=== PATIENT | male | born 1985 | race African-American/Black ===

== ENCOUNTER 2016-08-12 01:41 | Emergency (ER) | payer SELFPAY ==
[2016-08-12] MEDS ORDERED: AMOXICILLIN TR/POT CLAVULANATE 500-125 MG TAB PO ONE (02:19)
[2016-08-12] MEDS ORDERED: HYDROCODONE/ACETAMINOPHEN 5-325 MG 6 TAB/DSPK PO PRN (02:19)
--- NOTE | 2016-08-12 02:22 | ER Document Report ---
ED General - General Chief Complaint: Toothache Stated Complaint: POSSIBLE ABSCESS Notes: Patient is a 30-year-old male without past mental history who presents with 3 days of progressively worsening left facial pain and left lower molar pain. Describes it as a constant, dull, aching pain. It is worsened by eating or drinking. He has tried ibuprofen with minimal improvement of the pain. Denies a history of similar symptoms in the past. He has not seen his primary care physician or dentist regarding today's complaints. He denies any associated difficulty swallowing, breathing, or fever. TRAVEL OUTSIDE OF THE [place] IN LAST 30 DAYS: No - Related Data Allergies/Adverse Reactions: No Known Allergies Allergy (Verified 08/12/16 01:45) Past Medical History - General Information source: Patient - Social History Smoking Status: Never Smoker Frequency of alcohol use: Occasional Drug Abuse: None Lives with: Spouse/Significant other Family History: CAD Musculoskeltal Medical History: Reports Hx Musculoskeletal Trauma Skin Medical History: Reports Hx Cellulitis Past Surgical History: Reports: Hx Testicular Surgery - testicular abscess - Immunizations Immunizations up to date: Yes Hx Diphtheria, Pertussis, Tetanus Vaccination: Yes Review of Systems - Review of Systems Notes: Constitutional: Negative for fever. HENT: Negative for sore throat. Positive for dental pain and facial swelling Eyes: Negative for visual changes. Cardiovascular: Negative for chest pain. Respiratory: Negative for shortness of breath. Gastrointestinal: Negative for abdominal pain, vomiting or diarrhea. Genitourinary: Negative for dysuria. Musculoskeletal: Negative for back pain. Skin: Negative for rash. Neurological: Negative for headaches, weakness or numbness. 10 point ROS negative except as marked above and in HPI. Physical Exam - Vital signs Vitals: Temp Pulse Resp BP Pulse Ox 98.3 F 86 18 122/83 100 08/12/16 01:45 08/12/16 01:45 08/12/16 01:45 08/12/16 01:45 08/12/16 01:45 Interpretation: Normal Notes: PHYSICAL EXAMINATION: GENERAL: Well-appearing, well-nourished and in no acute distress. HEAD: Atraumatic, normocephalic. EYES: sclera anicteric, conjunctiva are normal. ENT: Moist mucous membranes. There is an apparent dental caries of tooth #19 with mild associated buccal mucosal swelling NECK: Normal range of motion LUNGS: Normal work of breathing HEART: 2+ radial pulses bilaterally EXTREMITIES: no pitting or edema. No cyanosis. NEUROLOGICAL: No focal neurological deficits. Moves all extremities spontaneously and on command. PSYCH: Normal mood, normal affect. SKIN: Warm, Dry, normal turgor, no rashes or lesions noted. Course - Re-evaluation Re-evalutation: 08/12/16 02:20 Presentation is most consistent with likely an infected tooth. Airway is patent. Vitals within normal limits. Patient is able swallow without any difficulty. There is no significant facial swelling. Patient will be started on antibiotics and a limited number of pain medications. I've instructed to follow-up with dentistry as earliest ability for definitive management. Return precautions and follow-up recommendations have been discussed at length. - Vital Signs Vital signs: Temp Pulse Resp BP Pulse Ox 98.3 F 86 18 122/83 100 08/12/16 01:45 08/12/16 01:45 08/12/16 01:45 08/12/16 01:45 08/12/16 01:45 Discharge - Discharge Clinical Impression: Dental caries Condition: Good Disposition: HOME, SELF-CARE Additional Instructions: You have been seen for dental pain. It is very important that you follow-up with a dentist for definitive care. Please return if you develop fever greater than 101, swelling in your face, vomiting, difficulty breathing or swallowing, or any other symptoms that are concerning to you. For pain you should take ibuprofen 600 mg every 6 hours as needed. Prescriptions: Amox Tr/Potassium Clavulanate [Augmentin 875-125 Tablet] 1 tab PO BID 10 Days
[2016-08-12 02:32] VITALS: BP 127/85
== END 2016-08-12 02:33 | disposition home or self-care (01) ==
LOC: ER 01:41
DX: K02.9 Dental caries, unspecified (principal); K08.9 Disorder of teeth and supporting structures, unspecified; R51 Headache
CPT/HCPCS: 99282

== ENCOUNTER 2016-08-17 09:05 | Emergency (ER) | payer SELFPAY ==
[2016-08-17 09:13] VITALS: BP 114/70
--- NOTE | 2016-08-17 09:30 | ER Document Report ---
ED Oral Problem - General Mode of Arrival: Ambulatory Information source: Patient TRAVEL OUTSIDE OF THE [place] IN LAST 30 DAYS: No - HPI Patient complains to provider of: Toothache Onset: Last week Quality of pain: Sharp, Throbbing Context: Fractured tooth Associated symptoms: Dental decay, Jaw pain, Toothache Recently seen / treated by doctor/dentist: Yes - [facility] ED 08/12/2016 - General Chief Complaint: Toothache Stated Complaint: TOOTH PAIN Notes: Patient is a 30-year-old male presenting to the emergency room concerned of left lower tooth pain for the past 7 days. Patient was seen here 4 days ago and given Augmentin and [place] and told to make an appointment to follow-up with the dentist. Patient states that the pain has persisted despite taking his medication. Patient states that he has not been eating as much, and he has a dentist appointment scheduled for . Patient states this is the soonest they can get him in. (KRIS GONZALEZ) - Related Data Allergies/Adverse Reactions: No Known Allergies Allergy (Verified 08/17/16 09:12) Past Medical History - General Information source: Patient - Social History Smoking Status: Current Every Day Smoker Chew tobacco use (# tins/day): No Frequency of alcohol use: Occasional Drug Abuse: None Family History: Reviewed & Not Pertinent, CAD Patient has suicidal ideation: No Patient has homicidal ideation: No Musculoskeltal Medical History: Reports Hx Musculoskeletal Trauma Skin Medical History: Reports Hx Cellulitis Past Surgical History: Reports: Hx Testicular Surgery - testicular abscess - Immunizations Immunizations up to date: Yes Hx Diphtheria, Pertussis, Tetanus Vaccination: Yes Review of Systems - Review of Systems Constitutional: No symptoms reported EENT: No symptoms reported, Mouth pain, Dental problem - Left lower tooth pain Cardiovascular: No symptoms reported Respiratory: No symptoms reported Gastrointestinal: No symptoms reported Genitourinary: No symptoms reported Male Genitourinary: No symptoms reported Musculoskeletal: No symptoms reported Skin: No symptoms reported Hematologic/Lymphatic: No symptoms reported Neurological/Psychological: No symptoms reported -: Yes All other systems reviewed and negative Physical Exam - Vital signs Interpretation: Normal - General General appearance: Alert - HEENT Head: Normocephalic, Atraumatic Eyes: Normal Pupils: PERRL Mouth/Lips: Dental fracture - Left 3rd lower anterior portion of molar chipped and decayed with some swelling of surrounding gums. No obvious abscess. Left Jaw is tender. Significant alcohol odor on breath. - Respiratory Respiratory status: No respiratory distress Chest status: Nontender - Cardiovascular Rhythm: Regular - Abdominal Inspection: Normal - Back Back: Normal - Extremities General upper extremity: Normal inspection General lower extremity: Normal inspection - Neurological Neuro grossly intact: Yes Cognition: Normal [place] Coma Scale Eye Opening: Spontaneous [place] Coma Scale Verbal: Oriented [place] Coma Scale Motor: Obeys Commands Peggy Coma Scale Total: 15 Speech: Normal - Psychological Associated symptoms: Normal affect, Normal mood - Skin Skin Temperature: Warm Skin Moisture: Dry Skin Color: Normal - Vital signs Vitals: Temp Pulse Resp BP Pulse Ox 98.0 F 87 16 114/70 96 08/17/16 09:10 08/17/16 09:10 08/17/16 09:10 08/17/16 09:10 08/17/16 09:10 (ROSANA WARD) (KRIS GONZALEZ) Discharge - Discharge Clinical Impression: Dental caries, Toothache Additional Instructions: Take ibuprofen or Aleve every day for the anti-inflammatory benefit. Be sure to follow with your dentist as scheduled this week. Prescriptions: Hydrocodone/Acetaminophen [Hydrocodon-Acetaminophen 5-325] 1 each PO Q4 PRN #15 tablet PRN Reason: Scribe Attestation: 08/17/16 09:40 I personally performed the services described in the documentation, reviewed and edited the documentation which was dictated to the scribe in my presence, and it accurately records my words and actions. (ROSANA WARD) Scribe Documentation - Scribe Written by Oanh:: OANH CARPENTER 08/17/16922 Acting as scribe for: (ROSANA WARD) Dr. Ward (KRIS GONZALEZ)
== END 2016-08-17 09:57 | disposition home or self-care (01) ==
LOC: ER 09:05
DX: K02.9 Dental caries, unspecified (principal); K03.89 Other specified diseases of hard tissues of teeth; F17.210 Nicotine dependence, cigarettes, uncomplicated
CPT/HCPCS: 99282

== ENCOUNTER 2017-01-20 03:09 | Emergency (ER) | payer SELFPAY ==
[2017-01-20 03:23] VITALS: BP 114/87
[2017-01-20] MEDS ORDERED: DIPH/PERTUSS(ACELL)/TETANUS VAC/PF 0.5 ML SYR (>=10YO) IM ONE (07:24)
[2017-01-20] MEDS ORDERED: LIDOCAINE 4%/TETRACAINE 0.5%/EPI 0.18% 5 ML TOPICAL SOLN TOP ONE (07:38)
--- NOTE | 2017-01-20 07:38 | ER Document Report ---
HPI - HPI Patient complains to provider of: right elbow pain Onset: Other Onset/Duration: Constant Pain Level: 5 Context: 31-year-old male fell onto his right elbow 2 days ago. He put a bandage on it and the gauze is stuck to the wound. He states it hurts too much to straighten his elbow. Tetanus not current Associated Symptoms: None Exacerbated by: Movement Relieved by: Denies Similar symptoms previously: No Recently seen / treated by doctor: No - ROS ROS below otherwise negative: Yes Systems Reviewed and Negative: Yes All other systems reviewed and negative - REPRODUCTIVE Reproductive: DENIES: : Past Medical History - General Information source: Patient - Social History Smoking Status: Unknown if Ever Smoked Frequency of alcohol use: None Drug Abuse: None Lives with: Family Family History: CAD Renal/ Medical History: Denies: Hx Peritoneal Dialysis Musculoskeltal Medical History: Reports Hx Musculoskeletal Trauma Skin Medical History: Reports Hx Cellulitis Past Surgical History: Reports: Hx Testicular Surgery - testicular abscess - Immunizations Immunizations up to date: Yes Hx Diphtheria, Pertussis, Tetanus Vaccination: Yes Vertical Provider Document - CONSTITUTIONAL Agree With Documented VS: Yes Exam Limitations: No Limitations - INFECTION CONTROL TRAVEL OUTSIDE OF THE [place] IN LAST 30 DAYS: No - HEENT HEENT: Normocephalic - NECK Neck: Supple - RESPIRATORY O2 Sat by Pulse Oximetry: 99 - MUSCULOSKELETAL/EXTREMETIES Musculoskeletal/Extremeties: Tender, Edema - abrasion right olecranon with gauze stuck to wound - NEURO Motor/Sensory: No Motor Deficit, No Sensory Deficit - DERM Integumentary: Warm, Dry Course - Re-evaluation Re-evalutation: 01/20/17 08:56 X-ray is negative and patient does not want the stuck gauze taken off even with left that had been applied. I cut the edges off, Vaseline, gauze, Coban and encouraged him to do range of motion. He has a hypersensitivity to touching the area. - Vital Signs Vital signs: Temp Pulse Resp BP Pulse Ox 98.3 F 96 18 114/87 H 99 01/20/17 03:18 01/20/17 03:18 01/20/17 03:18 01/20/17 03:18 01/20/17 03:18 Discharge - Discharge Clinical Impression: Right olecranon contusion and abrasion Condition: Good Disposition: HOME, SELF-CARE Instructions: Tetanus Immunization Given ([facility]), Soap Cleansing ([facility]), Antibiotic Ointment Protection ([facility]) Additional Instructions: Shower after removal of the bandage daily with replacement of Vaseline and nonstick dressing Return to the emergency room any signs of infection Please complete the patient satisfaction survey if you get one, and return it.. If you do not receive a survey, then you can go to the [facility] website, [email or web address] and place your comments about your very good care. Thank you very much. It was a pleasure being your medical provider today.
[2017-01-20] MEDS ORDERED: IBUPROFEN 800 MG TABLET PO ONE (07:46)
--- NOTE | 2017-01-20 08:27 | RADIOLOGY REPORT (SQ) ---
EXAM DESCRIPTION: ELBOW RIGHT OVER 2 VIEWS COMPLETED DATE/TIME: 01/20/2017 8:07 am REASON FOR STUDY: contusion COMPARISON: None. NUMBER OF VIEWS: Four views. TECHNIQUE: AP, lateral, and both oblique radiographic images acquired of the right elbow. LIMITATIONS: None. FINDINGS: MINERALIZATION: Normal. BONES: No acute fracture or dislocation. No worrisome bone lesions. JOINT: No effusion. SOFT TISSUES: No soft tissue swelling. No foreign body. OTHER: No other significant finding. IMPRESSION: NEGATIVE STUDY OF THE RIGHT ELBOW. NO RADIOGRAPHIC EVIDENCE OF ACUTE INJURY. TECHNICAL DOCUMENTATION: JOB ID: [id number] [employer]- All Rights Reserved
== END 2017-01-20 09:00 | disposition home or self-care (01) ==
LOC: ER 03:09
DX: S50.01XA Contusion of right elbow, initial encounter (principal); S50.311A Abrasion of right elbow, initial encounter; M25.521 Pain in right elbow; X58.XXXA Exposure to other specified factors, initial encounter
CPT/HCPCS: 99283; 90471; 73080; 90715; J3490

== ENCOUNTER 2017-02-10 03:58 | Emergency (ER) | payer SELFPAY ==
[2017-02-10] MEDS ORDERED: HYDROMORPHONE HCL INJ/PF 2 MG/ML AMPULE IV ONE ×2 (04:43→06:21)
[2017-02-10] MEDS ORDERED: LORAZEPAM INJ 2 MG/1 ML VIAL IV ONE (04:43)
[2017-02-10] MEDS ORDERED: AMPICILLIN SOD/SULBACTAM 3 GM VIAL IV ONE (04:44)
[2017-02-10] MEDS ORDERED: VANCOMYCIN HCL INJ 1000 MG VIAL IV ONE (04:44)
[2017-02-10] MEDS ORDERED: LIDOCAINE 1% INJ-PF (10 MG/ML) 30 ML SDV INJ ONE (04:46)
--- NOTE | 2017-02-10 04:47 | ER Document Report ---
ED General - General TRAVEL OUTSIDE OF THE [place] IN LAST 30 DAYS: No - General Chief Complaint: Abscess Stated Complaint: ABSCESS Time Seen by Provider: 02/10/17 04:31 Notes: Patient is a 31-year-old male presents with complaint of a abscess at the junction of his left medial thigh and scrotal sac. He never had one in this location before. He has some drainage in the area earlier today. No fevers. No vomiting. No diarrhea. Patient has no other complaints at this time. No abdominal pain. No pain into the genitalia itself. Is not diabetic. (MARCIAL WILCOX) - Related Data Allergies/Adverse Reactions: No Known Allergies Allergy (Verified 08/17/16 09:12) Past Medical History - Social History Smoking Status: Current Every Day Smoker Frequency of alcohol use: Heavy Drug Abuse: None Family History: CAD Patient has suicidal ideation: No Patient has homicidal ideation: No Renal/ Medical History: Denies: Hx Peritoneal Dialysis Musculoskeltal Medical History: Reports Hx Musculoskeletal Trauma Skin Medical History: Reports Hx Cellulitis Past Surgical History: Reports: Hx Testicular Surgery - testicular abscess x 2 - Immunizations Immunizations up to date: Yes Hx Diphtheria, Pertussis, Tetanus Vaccination: Yes Review of Systems - Review of Systems Notes: My Normal Review Basic REVIEW OF SYSTEMS: CONSTITUTIONAL : Denies fever, chills, or sweats. Denies recent illness. RESPIRATORY: Denies cough, cold, or chest congestion. Denies shortness of breath, difficulty breathing, or wheezing. GASTROINTESTINAL: Denies abdominal pain. Denies nausea, vomiting, or diarrhea. Denies constipation. GENITOURINARY: Denies difficulty urinating, painful urination, burning, frequency, or blood in urine. MUSCULOSKELETAL: Denies neck or back pain or joint pain or swelling. SKIN: Abscess in left inguinal area. HEMATOLOGIC : Denies easy bruising or bleeding. LYMPHATIC: Denies swollen, enlarged glands. NEUROLOGICAL: Denies altered mental status or loss of consciousness. Denies headache. Denies weakness or paralysis or loss of use of either side. Denies problems with gait or speech. Denies sensory or motor loss. ALL OTHER SYSTEMS REVIEWED AND NEGATIVE. (MARCIAL WILCOX) Physical Exam - Vital signs Vitals: Temp Pulse Resp BP Pulse Ox 98.3 F 80 18 130/74 H 99 02/10/17 04:00 02/10/17 04:00 02/10/17 04:00 02/10/17 04:00 02/10/17 04:00 - Notes Notes: General Appearance: Well nourished, alert, cooperative, no acute distress, moderate obvious discomfort. Vitals: reviewed, See vital signs table. Eyes: PERRL, EOMI, Conjuctiva clear Mouth: No decreasd moisture Lungs: No wheezing, No rales, No rhonci, No accessory muscle use, good air exchange bilaterally. Heart: Normal rate, Regular rythm, No murmur, no rub Abdomen: Normal BS, soft, No rigidity, No abdominal tenderness, No guarding, no rebound, no abdominal masses, no organomegaly Genital: Patient has a small 2 cm abscess at the junction of the left thigh of the left side of scrotum. I do not feel any induration going into the genitalia itself. There is a small amount of purulent drainage coming from the area. No induration erythema redness or warmth going into the abdomen. No crepitance. Extremities: strength 5/5 in all extremities, good pulses in all extremities, no swelling or tenderness in the extremities, no edema. Skin: warm, dry, appropriate color, no rash Neuro: speech clear, oriented x 3, normal affect, responds appropriately to questions. (MARCIAL WILCOX) Course - Re-evaluation Re-evalutation: 02/10/17 05:25 02/10/17 05:28 (MARCIAL WILCOX) 02/10/17 08:19 Patient requesting additional medication for pain for discharge. Prescription for [place] given. Patient should not drive while taking [place] or operate heavy machinery. (JANNETH HUSSEIN) - Vital Signs Vital signs: Temp Pulse Resp BP Pulse Ox 98.3 F 83 18 130/74 H 100 02/10/17 04:03 02/10/17 04:03 02/10/17 04:03 02/10/17 04:03 02/10/17 05:30 Procedures - Incision and Drainage Left Groin Type: Simple Anesthetic type: 1% Lidocaine mL's of anesthetic: 2 Blade size: 11 I&D procedure: Betadine prep applied Incision Method: Incision made by scalpel Amount/type of drainage: small amount of blood tinged and purulent fluid - Incision and Drainage Left Groin Notes: 02/10/17 05:24 abscess void irrigated after incision (MARCIAL WILCOX) Discharge - Discharge Clinical Impression: Abscess Condition: Good Instructions: Oral Narcotic Medication ([facility]) Additional Instructions: Please return to the ER immediately if you have increased swelling, increasing pain in you inguinal area, or fevers. Please follow up with your doctor or return to the ER in 2 days for reevaluation. Please take the antibiotics as prescribed. Prescriptions: Hydrocodone/Acetaminophen [[place] 5-325 mg Tablet] 1 tab PO Q4HP PRN #20 tablet PRN Reason: Clindamycin HCl 300 mg PO ASDIR #56 capsule Sulfamethoxazole/Trimethoprim [Bactrim Ds Tablet] 1 each PO BID #14 tablet Forms: Return to Work
[2017-02-10] MEDS ORDERED: MIDAZOLAM 2 MG/2 ML INJ ONE (05:12)
[2017-02-10 08:28] VITALS: BP 122/84
== END 2017-02-10 08:40 | disposition home or self-care (01) ==
LOC: ER 03:58
PROC: 0H9JXZZ Drainage of Left Upper Leg Skin, External Approach (ICD-10-PCS; principal; 2017-02-10)
DX: L02.416 Cutaneous abscess of left lower limb (principal); F17.200 Nicotine dependence, unspecified, uncomplicated
CPT/HCPCS: 96376; 99283; 96375; 96365; 96366; 96367; 87070; 87205; 87075; 87077; 10060; J0295; J3490; J1170; J2060; J3370; A6266

== ENCOUNTER 2017-02-22 16:05 | Emergency (ER) | payer SELFPAY ==
[2017-02-22 16:28] VITALS: BP 124/79
--- NOTE | 2017-02-22 17:03 | ER Document Report ---
HPI - HPI Patient complains to provider of: dental pain Pain Level: 5 Context: 31 yo male c/o dental pain x 2 days. + hx/o dental infection in same area. reports he has dentist he can follow up with pt has hx/o of recent skin abscess to left inner thigh which he had to have I&D Associated Symptoms: None Exacerbated by: Food Relieved by: Denies Similar symptoms previously: Yes Recently seen / treated by doctor: No - ROS Systems Reviewed and Negative: Yes All other systems reviewed and negative - CARDIOVASCULAR Cardiovascular: DENIES: Chest pain - REPRODUCTIVE Reproductive: DENIES: : - DERM Skin Color: Normal Past Medical History - General Information source: Patient - Social History Smoking Status: Current Every Day Smoker Chew tobacco use (# tins/day): No Frequency of alcohol use: daily Drug Abuse: None Lives with: Family Family History: CAD - Medical History Medical History: Negative Renal/ Medical History: Denies: Hx Peritoneal Dialysis Musculoskeltal Medical History: Reports Hx Musculoskeletal Trauma Skin Medical History: Reports Hx Cellulitis Past Surgical History: Reports: Hx Testicular Surgery - testicular abscess x 2 - Immunizations Immunizations up to date: Yes Hx Diphtheria, Pertussis, Tetanus Vaccination: Yes Vertical Provider Document - CONSTITUTIONAL Agree With Documented VS: Yes Exam Limitations: No Limitations General Appearance: WD/WN, No Apparent Distress - INFECTION CONTROL TRAVEL OUTSIDE OF THE [place] IN LAST 30 DAYS: No - HEENT Mouth Diagram: 1 - pain Notes: + gingival swelling noted - NECK Neck: Normal Inspection, Supple - RESPIRATORY Respiratory: Breath Sounds Normal, No Respiratory Distress O2 Sat by Pulse Oximetry: 99 - CARDIOVASCULAR Cardiovascular: Regular Rate, Regular Rhythm - NEURO Level of Consciousness: Awake, Alert, Appropriate Course - Vital Signs Vital signs: Temp Pulse Resp BP Pulse Ox 98.1 F 81 12 124/79 99 02/22/17 16:27 02/22/17 16:27 02/22/17 16:27 02/22/17 16:27 02/22/17 16:27 Discharge - Discharge Clinical Impression: Dental infection Additional Instructions: continue antibiotic you are presently taking pain med as needed follow up with dental for further evaluation and treatment Prescriptions: Oxycodone HCl/Acetaminophen [Percocet 5-325 mg Tablet] 1 - 2 tab PO ASDIR PRN # 15 tablet PRN Reason:
== END 2017-02-22 17:09 | disposition home or self-care (01) ==
LOC: ER 16:05
DX: K04.7 Periapical abscess without sinus (principal); K08.9 Disorder of teeth and supporting structures, unspecified; F17.200 Nicotine dependence, unspecified, uncomplicated
CPT/HCPCS: 99282

== ENCOUNTER 2017-11-16 12:14 | Emergency (ER) | payer SELFPAY ==
[2017-11-16 12:18] VITALS: BP 133/85
[2017-11-16] MEDS ORDERED: LORAZEPAM 1 MG TABLET PO ONE (12:34)
[2017-11-16] MEDS ORDERED: DIPHENHYDRAMINE HCL 25 MG CAPSULE PO ONE (12:34)
--- NOTE | 2017-11-16 12:39 | ER Document Report ---
ED Psych Disorder / Suicide - General Chief Complaint: Palpitations Stated Complaint: POSSIBLE ANXIETY Time Seen by Provider: 11/16/17 12:27 Mode of Arrival: Medic Information source: Patient, Emergency Med Personnel, [facility] Records Notes: This 31's walking in his house when he suddenly developed chest pain, palpitations, chest was beating real hard, shortness of breath and difficulty swallowing. This started about 1130 today. He reports he gets these attacks possibly twice a week, the last bad one was a few weeks ago when he was in a [employer] chair. He is not on any regular medications. He states the symptoms are still present at this time. TRAVEL OUTSIDE OF THE [place] IN LAST 30 DAYS: No - Related Data Allergies/Adverse Reactions: No Known Allergies Allergy (Verified 11/16/17 12:14) Past Medical History - General Information source: Patient, Emergency Med Personnel, [facility] Records - Social History Smoking Status: Current Every Day Smoker Cigarette use (# per day): Yes - 1/2 PPD Chew tobacco use (# tins/day): No Smoking Education Provided: No Frequency of alcohol use: Social - Reports drinking 6 beers last night Drug Abuse: None Lives with: Friend Family History: CAD Musculoskeltal Medical History: Reports Hx Musculoskeletal Trauma Skin Medical History: Reports Hx Cellulitis Past Surgical History: Reports: Hx Testicular Surgery - Testicular torsion, Other - I&D abscess and the median raphae/perianal region - Immunizations Immunizations up to date: Yes Hx Diphtheria, Pertussis, Tetanus Vaccination: Yes Review of Systems - Review of Systems Constitutional: No symptoms reported EENT: No symptoms reported Cardiovascular: Palpitations, Heart racing Respiratory: Short of breath Gastrointestinal: No symptoms reported Genitourinary: No symptoms reported Musculoskeletal: No symptoms reported Skin: No symptoms reported Hematologic/Lymphatic: No symptoms reported Neurological/Psychological: Anxiety Physical Exam - Vital signs Vitals: Temp Pulse Resp BP Pulse Ox 98.2 F 89 18 133/85 H 100 11/16/17 12:16 11/16/17 12:16 11/16/17 12:16 11/16/17 12:16 11/16/17 12:16 Interpretation: Normal - General General appearance: Alert, Anxious In distress: None - HEENT Head: Normocephalic, Atraumatic Eyes: Normal Pupils: PERRL Mouth/Lips: Other Pharynx: Normal Neck: Normal - Respiratory Respiratory status: No respiratory distress Breath sounds: Normal - Cardiovascular Rhythm: Regular Heart sounds: Normal auscultation Murmur: No - Abdominal Inspection: Normal Bowel sounds: Normal Tenderness: Nontender - Back Back: Normal - Extremities General upper extremity: Normal inspection General lower extremity: Normal inspection - Neurological Neuro grossly intact: Yes - Psychological Associated symptoms: Anxious - Skin Skin Temperature: Warm Skin Moisture: Dry Skin Color: Normal Course - Re-evaluation Re-evalutation: 11/16/17 13:46 Patient reports the swallowing difficulty foreign body sensation in the throat is gone now. He does feel much better and does not feel like his heart is beating fast. - Vital Signs Vital signs: Temp Pulse Resp BP Pulse Ox 98.2 F 89 18 133/85 H 100 11/16/17 12:16 11/16/17 12:16 11/16/17 12:16 11/16/17 12:16 11/16/17 12:16 - EKG Interpretation by Me EKG shows normal: Sinus rhythm, [place], Intervals, QRS Complexes, ST-T Waves Rate: Normal - 75 Rhythm: NSR Voltage: Consistant with LVH When compared to previous EKG there are: No significant change Discharge - Discharge Clinical Impression: Anxiety Condition: Stable Disposition: HOME, SELF-CARE Additional Instructions: Anxiety The physician feels that some of your health problems are being caused by anxiety. Anxiety affects your health in many ways. Anxiety alone can cause palpitations, sweats, chest pains, abdominal pains, shortness of breath, and headaches. It contributes to ulcer disease, high blood pressure, irritable bowel syndrome, and has been shown to cause flare-ups of many other diseases. Anxiety is not a simple disorder to treat. If the anxiety is due to recent life stresses, you may simply need time to "work through" the changes. If the anxiety is due to an underlying unhappiness with yourself or due to psychiatric disturbance, professional help will be needed. Your physician can refer you for further help if needed. Anti-anxiety medication is occasionally given if the stress is acute or if you are having trouble sleeping. Chronic or frequent use of these medications is not a good idea because the body becomes reliant on it, preventing you from dealing with life's normal stresses. Follow-up with a local medical doctor, or [facility], or [facility] to discuss treatment for your anxiety issues. Referrals: [facility] [Provider Group] - Follow up as needed [facility] [Provider Group] - Follow up as needed
--- NOTE | 2017-11-16 15:59 | EKG REPORT ---
SEVERITY:- ABNORMAL ECG - SINUS RHYTHM CONSIDER LEFT VENTRICULAR HYPERTROPHY : Confirmed by: Stanislav Varma MD 16-Nov-2017 15:58:57
== END 2017-11-16 13:55 | disposition home or self-care (01) ==
LOC: ER 12:14
DX: F41.9 Anxiety disorder, unspecified (principal); R00.2 Palpitations; R07.9 Chest pain, unspecified; R06.02 Shortness of breath; R13.10 Dysphagia, unspecified; F17.210 Nicotine dependence, cigarettes, uncomplicated
CPT/HCPCS: 93005; 93010; 99283

== ENCOUNTER 2018-06-21 16:49 | Emergency (ER) | payer SELFPAY ==
[2018-06-21] MEDS ORDERED: FAMOTIDINE INJ/PF 20 MG/2 ML SDV IV ONE (17:22)
[2018-06-21] MEDS ORDERED: METHYLPREDNISOLONE INJ 125 MG/2 ML SDV IV ONE (17:22)
[2018-06-21] MEDS ORDERED: DIPHENHYDRAMINE HCL 50 MG/ML VIAL IV ONE (17:22)
--- NOTE | 2018-06-21 17:43 | ER Document Report ---
ED Allergic Reaction - General Chief Complaint: Allergic Reaction Stated Complaint: POSSIBLE ALLERGIC REACTION Time Seen by Provider: 06/21/18 17:17 Mode of Arrival: Ambulatory Information source: Patient Notes: 32-year-old male presents emergency department with complaints of an allergic reaction. Ate shrimp with peppers when felt like throat became tight. Denies shortness of breath. Able to handle secretions. Denies taking any medication prior to arrival. No history of allergic reaction. No new medications, soap, detergent, lotion, food. TRAVEL OUTSIDE OF THE [place] IN LAST 30 DAYS: No - HPI Onset: Just prior to arrival Onset/Duration: Sudden Quality of pain: No pain Severity: Mild Pain Level: Denies Food exposure: shrimp Swelling: Throat Associated symptoms: None Similar symptoms previously: No Recently seen / treated by doctor: No - Related Data Allergies/Adverse Reactions: No Known Allergies Allergy (Verified 11/16/17 12:14) Past Medical History - General Information source: Patient - Social History Smoking Status: Current Some Day Smoker Family History: CAD Renal/ Medical History: Denies: Hx Peritoneal Dialysis Musculoskeletal Medical History: Reports Hx Musculoskeletal Trauma Skin Medical History: Reports Hx Cellulitis Past Surgical History: Reports: Hx Testicular Surgery - Testicular torsion, Other - I&D abscess and the median raphae/perianal region - Immunizations Immunizations up to date: Yes Hx Diphtheria, Pertussis, Tetanus Vaccination: Yes Review of Systems - Review of Systems Constitutional: No symptoms reported EENT: Throat swelling Cardiovascular: No symptoms reported Respiratory: No symptoms reported Gastrointestinal: No symptoms reported Genitourinary: No symptoms reported Male Genitourinary: No symptoms reported Musculoskeletal: No symptoms reported Skin: No symptoms reported Hematologic/Lymphatic: No symptoms reported Neurological/Psychological: No symptoms reported -: Yes All other systems reviewed and negative Physical Exam - Vital signs Vitals: Temp Pulse Resp BP Pulse Ox 98.5 F 85 14 130/85 H 97 06/21/18 16:59 06/21/18 16:59 06/21/18 16:59 06/21/18 16:59 06/21/18 16:59 - Notes Notes: PHYSICAL EXAMINATION: GENERAL: Well-appearing, well-nourished and in no acute distress. HEAD: Atraumatic, normocephalic. EYES: Pupils equal round and reactive to light, extraocular movements intact, sclera anicteric, conjunctiva are normal. ENT: Nares patent, oropharynx clear without exudates. Moist mucous membranes. No tongue swelling. NECK: Normal range of motion, supple without lymphadenopathy. LUNGS: Breath sounds clear to auscultation bilaterally and equal. No wheezes rales or rhonchi. HEART: Regular rate and rhythm without murmurs ABDOMEN: Soft, nontender, nondistended abdomen. No guarding, no rebound. No masses appreciated. Musculoskeletal: Normal range of motion, no pitting or edema. No cyanosis. NEUROLOGICAL: Cranial nerves grossly intact. Normal speech, normal gait. Normal sensory, motor exams PSYCH: Normal mood, normal affect. SKIN: Warm, Dry, normal turgor, no rashes or lesions noted. Course - Re-evaluation Re-evalutation: 06/21/18 19:29 Patient given Pepcid, Benadryl, Solu-Medrol. Patient monitored. On reevaluation, patient has no complaints. He states that his throat tightness completely resolved. I will discharge the patient home. I told the patient to avoid shrimp, to follow-up with his primary care physician this week, to take [id number] medication as needed for symptom relief, and to return for worsening symptoms. The patient is agreeable with the plan of care. 06/21/18 19:42 - Vital Signs Vital signs: Temp Pulse Resp BP Pulse Ox 98.5 F 85 14 130/85 H 97 06/21/18 16:59 06/21/18 16:59 06/21/18 16:59 06/21/18 16:59 06/21/18 16:59 Discharge - Discharge Clinical Impression: Allergic reaction Qualifiers: Encounter type: initial encounter Qualified Code(s): T78.40XA - Allergy, unspecified, initial encounter Disposition: HOME, SELF-CARE Instructions: Acute Allergic Reaction ([facility]) Referrals: PANDA DAWN MD [ACTIVE STAFF] - Follow up as needed
[2018-06-21 19:42] VITALS: BP 107/71
== END 2018-06-21 19:49 | disposition home or self-care (01) ==
LOC: ER 16:49
DX: T78.40XA Allergy, unspecified, initial encounter (principal); R09.89 Other specified symptoms and signs involving the circulatory and respiratory systems; X58.XXXA Exposure to other specified factors, initial encounter; F17.200 Nicotine dependence, unspecified, uncomplicated
CPT/HCPCS: 99283; 96374; 96375; J1200; J2930; S0028

== ENCOUNTER 2019-03-11 12:21 | Emergency (ER) | payer SELFPAY ==
[2019-03-11] MEDS ORDERED: OXYCODONE-ACETAMINOPHEN 5-325 MG TABLET PO ONE (12:32)
[2019-03-11] MEDS ORDERED: ONDANSETRON 4 MG TAB.RAPDIS PO ONE (12:32)
--- NOTE | 2019-03-11 12:34 | ER Document Report ---
HPI - HPI Patient complains to provider of: Right leg pain Time Seen by Provider: 03/11/19 12:28 Onset: This morning Quality of pain: Throbbing Severity: Severe Pain Level: 5 Context: This 33-year-old male presents emergency department with complaints of severe right knee pain. Patient reports he was drinking alcohol last night and he fell off a ladder approximately 3 feet high. Reports it marianne his knee. He denies falling or landing on his knee. He reports after he fell off the ladder he was able to walk around no distress but when he woke up this morning had severe pain. Patient is complaining of severe right knee pain. Reports it hurts to move complains of pain just sitting there. Patient is wearing jeans we are able to roll the pants up to evaluate both knees. No erythema no swelling no warmth good pedal pulse Associated Symptoms: None Exacerbated by: Movement, Walking Relieved by: Denies Similar symptoms previously: No Recently seen / treated by doctor: No - REPRODUCTIVE Reproductive: DENIES: : Past Medical History - General Information source: Patient - Social History Smoking Status: Current Every Day Smoker Cigarette use (# per day): Yes Frequency of alcohol use: Occasional Drug Abuse: None Lives with: Family Family History: CAD Patient has suicidal ideation: No Patient has homicidal ideation: No Renal/ Medical History: Denies: Hx Peritoneal Dialysis Musculoskeletal Medical History: Reports Hx Musculoskeletal Trauma Skin Medical History: Reports Hx Cellulitis Past Surgical History: Reports: Hx Testicular Surgery - Testicular torsion, Other - I&D abscess and the median raphae/perianal region - Immunizations Immunizations up to date: Yes Hx Diphtheria, Pertussis, Tetanus Vaccination: Yes Vertical Provider Document - CONSTITUTIONAL Agree With Documented VS: Yes Exam Limitations: No Limitations General Appearance: Moderate Distress - winces yells out in pain when knee palpated - INFECTION CONTROL TRAVEL OUTSIDE OF THE [place] IN LAST 30 DAYS: No - HEENT HEENT: Atraumatic, Normocephalic - NECK Neck: Supple - RESPIRATORY Respiratory: No Respiratory Distress - CARDIOVASCULAR Cardiovascular: Regular Rate - MUSCULOSKELETAL/EXTREMETIES Musculoskeletal/Extremeties: Tender - right knee ttp no obvious deformity, good pedal pulse, good cap refill, no erythema, no swelling - NEURO Level of Consciousness: Awake, Alert, Appropriate - DERM Integumentary: Warm, Dry Course - Re-evaluation Re-evalutation: 03/11/19 13:16 This 33-year-old male presents emergency department with complaints of severe right knee pain. Patient reports he was drinking alcohol last night and he fell off a ladder approximately 3 feet high. Reports it marianne his knee. He denies falling or landing on his knee. He reports after he fell off the ladder he was able to walk around no distress but when he woke up this morning had severe pa in. Patient is complaining of severe right knee pain. Reports it hurts to move complains of pain just sitting there. Patient is wearing jeans we are able to roll the pants up to evaluate both knees. No erythema no swelling no warmth good pedal pulse Patient is complaining of severe knee pain was prescribed Percocet and Zofran here. He reports he vomited because the pain was so bad 03/11/19 13:46 Patient did stump out of the waiting room because he wanted another Percocet and the nurse told him we are waiting for results. Patient did return. X-ray of the knee is negative. He was instructed on plan of care for crutches Behzad wrap rest ice and Motrin for the pain. He verbalized understanding Knee X-Ray 03/11/19 12:32 IMPRESSION: No fracture or dislocation of the left knee. Joint spaces are preserved. 03/11/19 13:59 Patient refused crutches ambulated with a limp. - Vital Signs Vital signs: Temp Pulse Resp BP Pulse Ox 98.1 F 92 16 107/69 99 03/11/19 12:26 03/11/19 12:26 03/11/19 12:26 03/11/19 12:26 03/11/19 12:26 - Diagnostic Test Radiology reviewed: Image reviewed Procedures - Immobilization Right Knee Pre-Proc Neuro Vasc Exam: Normal Immobilizer type: Behzad wrap Performed by: PCT Post-Proc Neuro Vasc Exam: Unchanged from pre-exam Discharge - Discharge Clinical Impression: Right knee pain Condition: Stable Disposition: HOME, SELF-CARE Instructions: Behzad Wrap ([facility]), Use of Crutches ([facility]), Use of Fwby-[id number]-[id number] Ibuprofen ([facility]), Ice & Elevation ([facility]) Additional Instructions: *You have been evaluated for RIGHT knee pain *the xray was negative for an acute fracture *Maintain the behzad wrap, use your crutches *Rest/Ice/Elevate *Follow up with orthopedics for continued pain within one week. -call for an appointment *Take ibuprofen as indicated for pain *Return to ED for worsening condition, changes, needs
--- NOTE | 2019-03-11 13:41 | RADIOLOGY REPORT (SQ) ---
EXAM DESCRIPTION: KNEE RIGHT 4 VIEWS COMPLETED DATE/TIME: 03/11/2019 12:52 pm REASON FOR STUDY: fell off ladder, knee pain COMPARISON: None. NUMBER OF VIEWS: Four views. TECHNIQUE: AP, lateral, and both oblique radiographic images acquired of the right knee. LIMITATIONS: None. FINDINGS: MINERALIZATION: Normal. BONES: No acute fracture or dislocation. No worrisome bone lesions. JOINT: No effusion. SOFT TISSUES: No soft tissue swelling. No radio-opaque foreign body. OTHER: No other significant finding. IMPRESSION: No fracture or dislocation of the left knee. Joint spaces are preserved. TECHNICAL DOCUMENTATION: JOB ID: [id number] [employer]- All Rights Reserved Reading location - IP/workstation name: [email or web address]
[2019-03-11 14:00] VITALS: BP 112/55
== END 2019-03-11 14:02 | disposition home or self-care (01) ==
LOC: ER 12:21
DX: M79.604 Pain in right leg (principal); W11.XXXA Fall on and from ladder, initial encounter; F17.210 Nicotine dependence, cigarettes, uncomplicated
CPT/HCPCS: 99283; 73564; S0119

== ENCOUNTER 2020-08-02 03:02 | Emergency (ER) | payer SELFPAY ==
[2020-08-02] MEDS ORDERED: ACETAMINOPHEN 325 MG TABLET PO ONE (03:21)
[2020-08-02] MEDS ORDERED: LIDOCAINE 1% INJ-PF (10 MG/ML) 30 ML SDV INJ ONE (09:07)
[2020-08-02] MEDS ORDERED: HYDROMORPHONE HCL INJ/PF 2 MG/ML AMPULE IV PRN (09:08)
[2020-08-02] MEDS ORDERED: ONDANSETRON HCL INJ/PF 4 MG/2 ML SDV ONE (09:49)
[2020-08-02] MEDS ORDERED: ONDANSETRON HCL INJ/PF 4 MG/2 ML SDV IV ONE (09:50)
--- NOTE | 2020-08-02 10:56 | ER Document Report ---
ED General - General Chief Complaint: Abscess Stated Complaint: ABSCESS ON [place] TRAVEL OUTSIDE OF THE [place] IN LAST 30 DAYS: No - HPI Notes: Chief Complaint: Abscess Historian: History obtained from patient HPI: This is a 34-year-old male presents to the ER complaining of a abscess to the groin area x1 week. Patient states he has a history of the same which has required incision and drainage in the past. Patient says this episode is smaller than prior episodes. Does report some drainage from the area. Denies fever, chills, dysuria, abdominal pain. No treatments tried. Denies concern for STD. ROS: Constitutional: no fevers. HEENT: no VASQUEZ, sore throat, or vision changes. CV: no chest pain or palpitations. Resp: no cough or SOB. GI: no abdominal pain, or n/v/d. : no dysuria, hematuria, or incont. MSK: no back pain, no joint swelling/redness. Skin: Scrotal abscess. Neuro: no seizures, weakness, numbness, or confusion. Hematological: no ecchymosis or easy bleeding. Endocrine: no polyuria/polydipsia, no heat/cold intolerance. Psych: no SI/HI, AH/VH or memory loss. PMHx: Reviewed and agree as charted by RN. PSHx: Reviewed and agree as charted by RN. SOCHx: Reviewed and agree as charted by RN. FHX: No significant familial comorbid conditions directly related to patient complaint Current Medications: Reviewed and agree with the patient medications as charted by the RN. Allergies: Reviewed and agree with the listed allergies as charted by the RN Physical Exam: Vitals: Reviewed in chart as documented by RN. General: Alert and in NAD. Head: Normocephalic; atraumatic Eyes: PERRLA, Conjunctivae clear sclerae non-icteric bilat ENT: no soft palate swelling or uvular deviation Neck: trachea midline, no unilateral swelling/tenderness/lymphadenopathy CV: RRR, no M/R/G; symmetric distal pulses Resp: respirations even and unlabored, CTA bilat. GI: abd soft and nondistended. NTTP. normal BS. no masses/HSM. no CVAT bilat - 1cm superficial abscess to left scrotal wall. small amount of exudative tissue centrally- no active drainage or bleeding. focal induration. no expanding erythema/induration/swelling. no scrotal swelling. cremaster intact bilat. no testicular swelling/tenderness. no erythema/swelling/tenderness to inguinal or perineal areas. MSK: FROM of all extremities. No midline CTL spine tenderness/deformity Skin: warm, moist, good turgor. Neuro: Alert and oriented X 4. following CN 2-12 intact. no unilateral weakness/numbness Psych: No SI/HI or AH/VH. Medical Decision-Making: Medical Decision-making/Differential Diagnosis: Consider various etiologies including but not limited to skin/soft tissue structure infection, cellulitis, erysipelas, sepsis syndromes, focal abscess, cyst, pilonydal cyst, syphilis, chancre, warts, orchitis, epididymitis, testicular torsion- unlikely, STI, folliculitis, carbuncle, furuncle, ect plan- small/superficial dime-sized abscess to left scrotal wall- area if focal, no concerns about testicular involvement or deep tissue extension. no concerns of aleksandra's gangrene. pt would likely do well with warm compresses and po antibiotic trial. Pt says he wants to have an I&D since thats how it was treated before. Will give pt a dose of pain meds and then bedside I&D. pt agrees w/ plan of care. - Related Data Allergies/Adverse Reactions: tomato Allergy (Verified 08/02/20 03:16) Past Medical History - Social History Smoking Status: Current Every Day Smoker Frequency of alcohol use: Occasional Drug Abuse: None Family History: CAD Renal/ Medical History: Denies: Hx Peritoneal Dialysis Musculoskeletal Medical History: Reports Hx Musculoskeletal Trauma Skin Medical History: Reports Hx Cellulitis Past Surgical History: Reports: Hx Testicular Surgery - Testicular torsion, Other - I&D abscess and the median raphae/perianal region - Immunizations Immunizations up to date: Yes Hx Diphtheria, Pertussis, Tetanus Vaccination: Yes Physical Exam - Vital signs Vitals: Temp Pulse Resp BP Pulse Ox 98.6 F 93 18 140/92 H 98 08/02/20 03:09 08/02/20 03:09 08/02/20 03:09 08/02/20 03:09 08/02/20 03:09 Course - Re-evaluation Re-evalutation: 08/02/20 11:35 after pt recieved IV pain meds I prepared for I&D w/ med tech. PT became extremely anxious every time I came close to injecting lidocaine into abscess pt became resistant and would try to grab my hand or push it away while syringe was in my hand. Pt instructed to not touch area, especially during procedure due to risk of further injury to him or staff. I again attempted to inject area but pt again pulled away. He then decided that he did not want to have an I&D and would like to try antibiotics at home an warm compresses. educated pt on signs that would warrant return to the ER- esepecially increased swelling, redness, pain, fever, chills, n/v. will d/c w/ bactrim and keflex. 6 pill dispense pack of norco given in ED. pcp f/u in 2-3 days for recheck. - Vital Signs Vital signs: Temp Pulse Resp BP Pulse Ox 98.5 F 78 18 134/84 H 100 08/02/20 11:00 08/02/20 11:00 08/02/20 11:00 08/02/20 11:00 08/02/20 11:00 - Laboratory Results Critical Laboratory Results Reviewed: No Critical Results - Radiology Results Critical Radiology Results Reviewed: No Critical Results Discharge - Discharge Clinical Impression: Scrotal wall abscess Condition: Stable Disposition: HOME, SELF-CARE Instructions: Abscess ([facility]) Additional Instructions: take medications as prescribed. no driving on pain medications. warm soaks in bath tub and warm moist compresses multiple times a day. return immediately if infections spreads or worsens or if you get a fever/chills or nausea/vomiting. follow up with your doctor in 2 days for a recheck. Prescriptions: Sulfamethoxazole/Trimethoprim [Bactrim Ds Tablet] 1 tab PO BID #14 tablet Cephalexin Monohydrate [Keflex 500 mg Capsule] 500 mg PO Q6H 7 Days #28 capsule
[2020-08-02] MEDS ORDERED: HYDROCODONE/ACETAMINOPHEN 5-325 MG (6 TAB/ER DISP) PO PRN ×2 (10:57→13:30)
[2020-08-02 11:09] VITALS: BP 134/84
== END 2020-08-02 11:00 | disposition home or self-care (01) ==
LOC: ER 03:02
DX: N49.2 Inflammatory disorders of scrotum (principal); F17.200 Nicotine dependence, unspecified, uncomplicated
CPT/HCPCS: 99284; 96374; 96375; J3490; J1170; J2405